=== PATIENT | male | born 1990 | race American Indian/Alaskan Native ===

== ENCOUNTER 2016-12-27 03:13 | Emergency (ER) | payer SELFPAY ==
[2016-12-27 03:16] VITALS: BMI 32.1
[2016-12-27 03:27] VITALS: TEMP 97.6
[2016-12-27] MEDS ORDERED: Albuterol-Ipratrop 3 mg / 0.5 (3 ml) UD IH STA (03:35)
--- NOTE | 2016-12-27 03:35 | ED PDOC ---
Arrival/HPI - General Chief Complaint: Chest Pain Time Seen by Provider: 12/27/16 03:34 Historian: Patient - History of Present Illness Narrative History of Present Illness (Text): 12/27/16 03:34 Kay Dean is a 26 year old male, whose past medical history includes asthma, who presents to the ED complaining of chest pain tonight. 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 Patient denies any fever, chills, abdominal pain, nausea , vomiting, back pain, neck pain, headache, dizziness, or any other complaints. Time/Duration: Other (tonight) Symptom Onset: Gradual Symptom Course: Unchanged Activities at Onset: Rest, Light Context: Work Past Medical History - Provider Review Nursing Documentation Reviewed: Yes - Infectious Disease Hx of Infectious Diseases: None - Tetanus Immunization Tetanus Immunization: Unknown - Past Medical History Past Medical History: No Previous - Cardiac Hx Cardiac Disorders: No - Pulmonary Hx Asthma: Yes - Neurological Hx Neurological Disorder: No - HEENT Hx HEENT Disorder: No - Renal Hx Renal Disorder: No - Endocrine/Metabolic Hx Endocrine Disorders: No - Hematological/Oncological Hx Blood Disorders: No - Integumentary Hx Dermatological Disorder: No - Musculoskeletal/Rheumatological Hx Musculoskeletal Disorders: No - Gastrointestinal Hx Gastrointestinal Disorders: No - Genitourinary/Gynecological Hx Genitourinary Disorders: No - Psychiatric Hx Psychophysiologic Disorder: No Hx Substance Use: No - Past Surgical History Past Surgical History: No Previous - Anesthesia Hx Anesthesia: No - Suicidal Assessment Feels Threatened In Home Enviroment: No Family/Social History - Physician Review Nursing Documentation Reviewed: Yes Family/Social History: No Known Family HX Smoking Status: Never Smoked Hx Alcohol Use: Yes Hx Substance Use: No Hx Substance Use Treatment: No Allergies/Home Meds Allergies/Adverse Reactions: Allergies No Known Allergies Allergy (Verified 05/26/16 01:07) Review of Systems - Physician Review All systems were reviewed & negative as marked: Yes - Review of Systems Constitutional: Normal. absent: Fevers Eyes: Normal ENT: Normal Respiratory: SOB Cardiovascular: Chest Pain Gastrointestinal: Normal. absent: Abdominal Pain, Nausea, Vomiting Genitourinary Male: Normal Musculoskeletal: Normal. absent: Back Pain, Neck Pain Skin: Normal. absent: Rash Neurological: Normal. absent: Headache, Dizziness Endocrine: Normal Hemo/Lymphatic: Normal Psychiatric: Normal Physical Exam Vital Signs Reviewed: Yes Vital Signs Temp Pulse Resp BP Pulse Ox 12/27/16 06:30 97.6 F 59 L 15 126/71 98 12/27/16 03:13 97.6 F 65 20 135/81 94 L Temperature: Afebrile Blood Pressure: Normal Pulse: Regular Respiratory Rate: Normal Appearance: Positive for: Well-Appearing, Non-Toxic, Comfortable Pain Distress: None Mental Status: Positive for: Alert and Oriented X 3 - Systems Exam Head: Present: Atraumatic, Normocephalic Pupils: Present: PERRL Extroacular Muscles: Present: EOMI Conjunctiva: Present: Normal Mouth: Present: Moist Mucous Membranes Neck: Present: Normal Range of Motion Respiratory/Chest: Present: Wheezes. No: Respiratory Distress, Accessory Muscle Use Cardiovascular: Present: Regular Rate and Rhythm, Normal S1, S2. No: Murmurs Abdomen: Present: Normal Bowel Sounds. No: Tenderness, Distention, Peritoneal Signs Back: Present: Normal Inspection Upper Extremity: Present: Normal Inspection. No: Cyanosis, Edema Lower Extremity: Present: Normal Inspection. No: Edema Neurological: Present: GCS=15, CN II-XII Intact, Speech Normal Skin: Present: Warm, Dry, Normal Color. No: Rashes Psychiatric: Present: Alert, Oriented x 3, Normal Insight, Normal Concentration Medical Decision Making ED Course and Treatment: 12/27/16 03:34 Impression: 26 y/o male c/o chest pain and shortness of breath tonight. Plan: -- EKG -- CXR -- Labs, cardiac enzymes -- Duoneb -- Reassess and disposition Prior Visits: Notes and results from previous visits were reviewed. On 05/16/2016, pt was seen in the ED for abdominal pain. Pt d/c home. Progress Notes: Reviewed EKG, NSR at 63 bpm. Sinus arrhythmia. Non-specific ST/T wave changes. Unchanged from previous EKG on 03/08/2013. 12/27/16 04:21 Reviewed radiology, CXR shows no active disease. 12/27/16 06:05 On re-evaluation, patient with relief of symptoms after treatment. Patient is stable for d/c. Patient was instructed to follow up with PMD in 1-2 days for further evaluation or to return to the ED if he develops any new/worsening symptoms. - Lab Interpretations Lab Results: 12/27/16 04:10 12/27/16 04:10 Lab Results 12/27/16 04:10: WBC 6.2 D, RBC 4.67, Hgb 13.1 L, Hct 40.3 L, MCV 86.3, MCH 28.1 , MCHC 32.5, RDW 12.4, Plt Count 199, MPV 9.9 12/27/16 04:10: Sodium 139, Potassium 4.0, Chloride 102, Carbon Dioxide 28, Anion Gap 13, BUN 11, Creatinine 0.8, Est GFR ( Amer) > 60, Est GFR (Non- Af Amer) > 60, Random Glucose 113 H, Calcium 8.8, Total Bilirubin 0.6, AST 24, ALT 43, Alkaline Phosphatase 92, Lactate Dehydrogenase 382, Total Creatine Kinase 290 H, CK-MB (CK-2) 2.7, CK-MB (CK-2) % Cancelled, Troponin I < 0.01, Total Protein 7.7, Albumin 4.3, Globulin 3.4, Albumin/Globulin Ratio 1.3 I have reviewed the lab results: Yes - RAD Interpretation Radiology Orders: 12/27/16 03:38 CHEST PORTABLE [RAD] Stat Engine Watchman: ED Physician - EKG Interpretation Interpreted by ED Physician: Yes Type: 12 lead EKG - Medication Orders Current Medication Orders: Discontinued Medications Albuterol/Ipratropium (Duoneb 3 Mg/0.5 Mg (3 Ml) Ud) 3 ml IH ONCE STA Stop: 12/27/16 03:36 Last Admin: 12/27/16 03:56 Dose: 3 ml - Scribe Statement The provider has reviewed the documentation as recorded by the Samra Morales Provider Attestation: All medical record entries made by the Samra were at my direction and personally dictated by me. I have reviewed the chart and agree that the record accurately reflects my personal performance of the history, physical exam, medical decision making, and the department course for this patient. I have also personally directed, reviewed, and agree with the discharge instructions and disposition. Disposition/Present on Arrival - Present on Arrival Any Indicators Present on Arrival: No History of DVT/PE: No History of Uncontrolled Diabetes: No Urinary Catheter: No History of Decub. Ulcer: No History Surgical Site Infection Following: None - Disposition Have Diagnosis and Disposition been Completed?: Yes Diagnosis: Asthma attack Disposition: HOME/ ROUTINE Disposition Time: 06:04 Patient Plan: Discharge Condition: GOOD Discharge Instructions (ExitCare): Asthma (ED) Additional Instructions: Medication as prescribed/follow up with your doctor this week Prescriptions: Albuterol HFA [Ventolin HFA 90 mcg/actuation (8 g)] 2 puff IH [id number] PRN #1 puff PRN Reason: Wheezing
[2016-12-27 04:32] LABS: ALB/GLOB RATIO 1.3 (1.1-1.8); ALKALINE PHOSPHATASE 92 U/L (38-133); ALT/SGPT 43 U/L (7-56); AST/SGOT 24 U/L (15-59); BILIRUBIN,TOTAL 0.6 mg/dL (0.2-1.3); BLOOD UREA NITROGEN 11 mg/dL (7-21); CALCIUM 8.8 mg/dL (8.4-10.5); CARBON DIOXIDE 28 mmol/L (21-33); CHLORIDE 102 mmol/L (98-107); GFR AFRICAN-AMERICAN > 60; GLUCOSE,RANDOM 113 mg/dL (70-110); SODIUM 139 mmol/L (132-148); TOTAL PROTEIN 7.7 g/dL (5.8-8.3)
[2016-12-27 04:36] LABS: HEMATOCRIT 40.3 % (42.0-52.0); WHITE BLOOD COUNT 6.2 10^3/ul (4.5-11.0)
[2016-12-27 04:37] LABS: MEAN CELL VOLUME 86.3 fL (80.0-105.0); MEAN CORPUSCULAR HEMOGLOBIN 28.1 pg (25.0-35.0); MEAN CORPUSCULAR HGB CONC 32.5 g/dl (31.0-37.0); MEAN PLATELET VOLUME 9.9 fl (7.0-11.0); RED CELL DISTRIBUTION WIDTH 12.4 % (11.5-14.5)
[2016-12-27 05:44] LABS: TROPONIN I < 0.01 ng/mL
[2016-12-27 06:31] VITALS: BP 126/71; PULSE 59; RESP 15; O2SAT 98
--- NOTE | 2016-12-27 06:38 | RAD ---
HISTORY: sob COMPARISON: 07/08/2013 FINDINGS: LUNGS: No active pulmonary disease. PLEURA: No significant pleural effusion identified, no pneumothorax apparent. CARDIOVASCULAR: Normal. OSSEOUS STRUCTURES: No significant abnormalities. VISUALIZED UPPER ABDOMEN: Normal. OTHER FINDINGS: None. IMPRESSION: No active disease.
--- NOTE | 2016-12-27 12:35 | CARD ---
APPROVED REPORT EKG Measurement Heart [id number] <Conclusion> Normal sinus rhythm with sinus arrhythmia Cannot rule out Inferior infarct, age undetermined Abnormal ECG
== END 2016-12-27 06:20 | disposition home or self-care (01) ==
LOC: ED 03:13
DX: J45.909 Unspecified asthma, uncomplicated (principal)

== ENCOUNTER 2017-01-30 13:59 | Emergency (ER) | payer SELFPAY ==
[2017-01-30 13:59] VITALS: BMI 32.1
[2017-01-30 14:44] VITALS: BP 150/80; PULSE 85; RESP 19; TEMP 98.7; O2SAT 99
--- NOTE | 2017-01-30 14:51 | ED PDOC ---
Arrival/HPI - General Chief Complaint: Eye Problem Time Seen by Provider: 01/30/17 14:47 Historian: Patient - History of Present Illness Narrative History of Present Illness (Text): 01/30/17 14:47 26yr old male presents today with redness to the left eye. Patient states on Tuesday he vomited a couple of times and woke up Tuesday morning with redness to the left eye that has been slightly worsening. He denies headache dizziness or weakness. No fevers or chills. No chest pain or shortness of breath. He denies any abdominal pain or nausea at present time. He denies trauma or injury to the eye. He denies any blurred vision. No other complaints Symptom Course: Worsening Quality: Other (no pain) Past Medical History - Provider Review Nursing Documentation Reviewed: Yes - Travel History Have you recently traveled outside [place] w/in the past 3 mons?: No - Infectious Disease Hx of Infectious Diseases: None - Tetanus Immunization Tetanus Immunization: Unknown - Past Medical History Past Medical History: No Previous - Cardiac Hx Cardiac Disorders: No - Pulmonary Hx Asthma: Yes - Neurological Hx Neurological Disorder: No - HEENT Hx HEENT Disorder: No - Renal Hx Renal Disorder: No - Endocrine/Metabolic Hx Endocrine Disorders: No - Hematological/Oncological Hx Blood Disorders: No - Integumentary Hx Dermatological Disorder: No - Musculoskeletal/Rheumatological Hx Musculoskeletal Disorders: No - Gastrointestinal Hx Gastrointestinal Disorders: No - Genitourinary/Gynecological Hx Genitourinary Disorders: No - Psychiatric Hx Psychophysiologic Disorder: No Hx Substance Use: No - Past Surgical History Past Surgical History: No Previous - Anesthesia Hx Anesthesia: No Hx Anesthesia Reactions: No Hx Malignant Hyperthermia: No - Suicidal Assessment Feels Threatened In Home Enviroment: No Family/Social History - Physician Review Nursing Documentation Reviewed: Yes Family/Social History: Unknown Family HX Smoking Status: Never Smoked Hx Alcohol Use: Yes Frequency of alcohol use: Socially Hx Substance Use: No Hx Substance Use Treatment: No Allergies/Home Meds Allergies/Adverse Reactions: Allergies grass pollen Adverse Reaction (Verified 01/30/17 14:43) RASH Home Medications: Home Meds Medication Instructions Recorded Confirmed No Known Home Med 01/30/17 01/30/17 Review of Systems - Review of Systems Constitutional: absent: Fatigue, Fevers Eyes: absent: Vision Changes, Photophobia, Eye Pain ENT: absent: Sinus Congestion Respiratory: absent: Cough Cardiovascular: absent: Chest Pain, Palpitations Gastrointestinal: Vomiting ( 3 times 3 days ago; ). absent: Abdominal Pain, Diarrhea, Nausea Musculoskeletal: absent: Arthralgias Skin: absent: Rash, Pruritis Neurological: absent: Headache, Dizziness Physical Exam Vital Signs Reviewed: Yes Vital Signs Temp Pulse Resp BP Pulse Ox 01/30/17 14:36 98.7 F 85 19 150/80 99 Temperature: Afebrile Blood Pressure: Hypertensive Pulse: Regular Respiratory Rate: Normal Appearance: Positive for: Well-Appearing, Non-Toxic, Comfortable Pain Distress: None Mental Status: Positive for: Alert and Oriented X 3 - Systems Exam Head: Present: Atraumatic Pupils: Present: PERRL Extroacular Muscles: Present: EOMI. No: Entrapment Conjunctiva: Present: Other (left eye; + subconjunctival hemorrhage noted to medial aspect of left eye; ) Ears: Present: Normal Mouth: Present: Moist Mucous Membranes Respiratory/Chest: Present: Clear to Auscultation Cardiovascular: Present: Regular Rate and Rhythm Abdomen: No: Tenderness Medical Decision Making ED Course and Treatment: 01/30/17 14:50 Patient is nontoxic well appearing in no distress Visual acuity: left eye 20/15 right eye 20/40; mPatient is supposed to wear glasses currently does not have his glasses with him. Denies any visual changes Left eye: Subconjunctival hemorrhage noted along the medial aspect. PERRLA, extraocular muscles intact, no periorbital edema or erythema or tenderness no hyphema Patient most likely with a subconjunctival hemorrhage from the vomiting that he had 3 days ago. I advised follow-up with the eye doctor within the next 2 days. Advised immediate return is symptoms worsen persist or if new concerning symptoms develop Patient verbalizes understanding of discharge instructions and need for immediate followup. all aspects of this case were discussed the attending of record. Impression: Subconjunctival hemorrhage Followup with the eye doctor within the next 2 days Return immediately if symptoms worsen persist or if new symptoms develop; blurry vision, worsening eye pain, worsening redness or any other concerning symptoms develop. Follow up with the primary care physician within the next 2 days Disposition/Present on Arrival - Present on Arrival Any Indicators Present on Arrival: No History of DVT/PE: No History of Uncontrolled Diabetes: No Urinary Catheter: No History of Decub. Ulcer: No History Surgical Site Infection Following: None - Disposition Have Diagnosis and Disposition been Completed?: Yes Diagnosis: Subconjunctival hemorrhage Disposition: HOME/ ROUTINE Disposition Time: 14:51 Patient Plan: Discharge Condition: GOOD Discharge Instructions (ExitCare): Subconjunctival Hemorrhage (ED) Additional Instructions: Followup with the eye doctor within the next 2 days Return immediately if symptoms worsen persist or if new symptoms develop; blurry vision, worsening eye pain, worsening redness or any other concerning symptoms develop. Follow up with the primary care physician within the next 2 days Referrals: Annalee Tovar, [Primary Care Provider] - Follow up with primary Sky Mccarthy MD [Staff Provider] - Follow up with primary Gayathri Alcaraz MD [Staff Provider] - Follow up with primary [facility] [place]] - Follow up with primary
== END 2017-01-30 15:01 | disposition home or self-care (01) ==
LOC: ED 13:59
DX: H11.32 Conjunctival hemorrhage, left eye (principal)

== ENCOUNTER 2017-04-08 23:30 | Emergency (ER) | payer OTHER ==
[2017-04-08 23:31] VITALS: BMI 32.1
[2017-04-08 23:38] VITALS: TEMP 97.9
[2017-04-08] MEDS ORDERED: Sodium Chloride 0.9% 1,000 ML IV SCH (23:45)
[2017-04-08] MEDS ORDERED: DiphenhydrAMINE 50 mg/ml Inj IVP STA (23:51)
[2017-04-08] MEDS ORDERED: Albuterol-Ipratrop 3 mg / 0.5 (3 ml) UD IH STA (23:52)
--- NOTE | 2017-04-09 01:36 | ED PDOC ---
Arrival/HPI <Ernie Lo - Last Filed: 04/09/17 01:59> - General Historian: Patient EM Caveat: Acuity of Condition - History of Present Illness Time/Duration: Prior to Arrival Symptom Onset: Gradual Activities at Onset: Rest Context: Home <OSCAR DAVISON - Last Filed: 04/09/17 02:10> - General Chief Complaint: Allergic Reaction Time Seen by Provider: 04/08/17 23:36 - History of Present Illness Narrative History of Present Illness (Text): Patient is a 26 year old male with past medical history of asthma who presented to [facility] Emergency department 04/08/17 with complaints of swollen face arms, and pruritus. Patient states that prior to event he was at his brother's house and at times playing with his brother's dog. Patient states he doesn't usually interact with dog while at brother's house but today for the first time stayed inside the house during the day and was in constant contact with the dog. He says around 9 p.m. he started feeling dyspneic and decided to go home to use his inhaler. He went home realize his inhaler was done and decided to use his sister's asthma machine. Around 10 when he was on his way to work he noticed his arms were itching and noted swelling in his face when he looked in the mirror, prompting patient to come to the Emergency department. Patient denies n/ v/d, dizziness, chest pain, headache. 04/09/17 01:42 (ABY DAVIS) Past Medical History - Provider Review Nursing Documentation Reviewed: Yes - Infectious Disease Hx of Infectious Diseases: None - Tetanus Immunization Tetanus Immunization: Unknown - Past Medical History Past Medical History: No Previous - Cardiac Hx Cardiac Disorders: No - Pulmonary Hx Asthma: Yes - Neurological Hx Neurological Disorder: No - HEENT Hx HEENT Disorder: No - Renal Hx Renal Disorder: No - Endocrine/Metabolic Hx Endocrine Disorders: No - Hematological/Oncological Hx Blood Disorders: No - Integumentary Hx Dermatological Disorder: No - Musculoskeletal/Rheumatological Hx Musculoskeletal Disorders: No - Gastrointestinal Hx Gastrointestinal Disorders: No - Genitourinary/Gynecological Hx Genitourinary Disorders: No - Psychiatric Hx Psychophysiologic Disorder: No Hx Substance Use: No - Past Surgical History Past Surgical History: No Previous - Anesthesia Hx Anesthesia: No Hx Anesthesia Reactions: No Hx Malignant Hyperthermia: No - Suicidal Assessment Feels Threatened In Home Enviroment: No <ABY DAVIS Last Filed: 04/09/17 02:10> Family/Social History - Physician Review Nursing Documentation Reviewed: Yes Family/Social History: Other (Brother and sister have asthma) Smoking Status: Never Smoked Hx Alcohol Use: Yes Hx Substance Use: No Hx Substance Use Treatment: No <DAVISABY - Last Filed: 04/09/17 02:10> Allergies/Home Meds <TeresitaErnie Mckeon Last Filed: 04/09/17 01:59> <RYANABY - Last Filed: 04/09/17 02:10> Allergies/Adverse Reactions: Allergies grass pollen Adverse Reaction (Verified 01/30/17 14:43) RASH Review of Systems - Physician Review All systems were reviewed & negative as marked: Yes <TeresitaErnie Mckeon Last Filed: 04/09/17 01:59> - Physician Review All systems were reviewed & negative as marked: Yes - Review of Systems Eyes: Normal ENT: absent: Hearing Changes Gastrointestinal: absent: Abdominal Pain, Vomiting Genitourinary Male: absent: Dysuria Musculoskeletal: absent: Arthralgias Skin: Pruritis. absent: Rash Neurological: absent: Headache, Dizziness <ABY DAVIS Last Filed: 04/09/17 02:10> Physical Exam Vital Signs Reviewed: Yes Temperature: Afebrile Blood Pressure: Normal Pulse: Regular Respiratory Rate: Normal Appearance: Positive for: Uncomfortable Pain Distress: None Mental Status: Positive for: Alert and Oriented X 3 - Systems Exam Head: Present: Atraumatic, Normocephalic Extroacular Muscles: Present: EOMI Conjunctiva: Present: Normal Mouth: Present: Moist Mucous Membranes Respiratory/Chest: Present: Clear to Auscultation, Good Air Exchange Cardiovascular: Present: Regular Rate and Rhythm, Normal S1, S2 Abdomen: Present: Tenderness, Normal Bowel Sounds Neurological: Present: CN II-XII Intact Skin: Present: Hot. No: Rashes Psychiatric: Present: Alert, Oriented x 3 <RYANABY Last Filed: 04/09/17 02:10> Vital Signs Temp Pulse Resp BP Pulse Ox 04/08/17 23:33 97.9 F 89 18 128/74 97 Medical Decision Making <TeresitaErnie Mckeon Last Filed: 04/09/17 01:59> <ABY DAVIS - Last Filed: 04/09/17 02:10> ED Course and Treatment: 04/09/17 02:05 In agreement with resident note, which includes further HPI details. Patient was seen and evaluated with resident, came up with plan and treatment together. 26 year old male presents complaining of swollen face, arms, and pruritus. (Ernie Lo) Assessment Patient is a 26 year old male with a history of asthma presenting to the Emergency department with an allergic reaction due to contact with dogs. Plan - Benadryl, Methylprednisolone, Duoneb, Pepcid were administered to patient - Patient's symptoms resolved shortly with medications - Advise patient to establish care with PMD - Will prescribe albuterol inhaler to patient 04/09/17 01:46 (ABY DAVIS) - Medication Orders Current Medication Orders: Sodium Chloride (Sodium Chloride 0.9%) 1,000 mls @ 100 mls/hr IV .Q10H EPHRAIM Last Admin: 04/09/17 00:24 Dose: 100 mls/hr Discontinued Medications Albuterol/Ipratropium (Duoneb 3 Mg/0.5 Mg (3 Ml) Ud) 3 ml IH STAT STA Stop: 04/08/17 23:53 Last Admin: 04/09/17 00:24 Dose: 3 ml Diphenhydramine HCl (Benadryl) 50 mg IVP STAT STA Stop: 04/08/17 23:52 Last Admin: 04/09/17 00:24 Dose: 50 mg Famotidine (Pepcid) 20 mg IVP STAT STA Stop: 04/08/17 23:54 Last Admin: 04/09/17 00:24 Dose: 20 mg Methylprednisolone (Solu-Medrol) 125 mg IVP STAT STA Stop: 04/08/17 23:53 Last Admin: 04/09/17 00:24 Dose: 125 mg Ondansetron HCl (Zofran Inj) Confirm Administered Dose 4 mg .ROUTE .STK-MED ONE Stop: 04/09/17 00:18 Last Admin: 04/09/17 00:25 Dose: Ondansetron HCl (Zofran Inj) 4 mg IVP STAT STA Stop: 04/09/17 00:18 Last Admin: 04/09/17 00:25 Dose: 4 mg - Scribe Statement The provider has reviewed the documentation as recorded by the Scribe <Ernie Lo - Last Filed: 04/09/17 01:59> <ABY DAVIS - Last Filed: 04/09/17 02:10> - Scribe Statement Autumn Chadwick All medical record entries made by the Scribe were at my direction and personally dictated by me. I have reviewed the chart and agree that the record accurately reflects my personal performance of the history, physical exam, medical decision making, and the department course for this patient. I have also personally directed, reviewed, and agree with the discharge instructions and disposition. (Ernie Lo) Disposition/Present on Arrival <Ernie Lo - Last Filed: 04/09/17 01:59> - Present on Arrival Any Indicators Present on Arrival: No History of DVT/PE: No History of Uncontrolled Diabetes: No Urinary Catheter: No History of Decub. Ulcer: No History Surgical Site Infection Following: None - Disposition Have Diagnosis and Disposition been Completed?: Yes Disposition Time: 01:51 Patient Plan: Discharge <ABY DAVIS - Last Filed: 04/09/17 02:10> - Disposition Diagnosis: Allergic reaction Disposition: HOME/ ROUTINE Patient Problems: Current Active Problems Problem Status Onset Allergic reaction Acute Condition: GOOD Additional Instructions: Establish care with a primary care physician to further evaluate and follow your asthma; notify physician regarding hospitalization. Fill prescription for albuterol inhaler and take as prescribed. If symptoms return or if you have any other concerns return to the Emergency room. Prescriptions: Albuterol HFA [Ventolin HFA 90 mcg/actuation (8 g)] 2 puff IH [id number] #30 puff Forms: [employer] ([place])
[2017-04-09 02:46] VITALS: BP 124/76; PULSE 76; RESP 16; O2SAT 99
== END 2017-04-09 02:15 | disposition home or self-care (01) ==
LOC: ED 23:30
DX: T78.40XA Allergy, unspecified, initial encounter (principal); X58.XXXA Exposure to other specified factors, initial encounter
CPT/HCPCS: 96374; 96375; 99284; J1200; J2405; J2930; J7040

== ENCOUNTER 2017-07-30 20:42 | Emergency (ER) | payer SELFPAY ==
[2017-07-30 20:46] VITALS: BMI 28.8
[2017-07-30 20:49] VITALS: RESP 18; TEMP 98.8
--- NOTE | 2017-07-30 21:20 | ED PDOC ---
Arrival/HPI - General Chief Complaint: Abdominal Pain Time Seen by Provider: 07/30/17 21:12 Historian: Patient - History of Present Illness Narrative History of Present Illness (Text): 07/30/17 21:15 A 27 year old male presents to the emergency department complaining of constant right upper abdominal pain for 2 days. Patient reports his pain was sudden in onset. He denies any relieving or exacerbating factors. Patient notes mild nausea but denies any trauma, injury, fever, chills, vomiting, diarrhea, urinary symptoms, chest pain, shortness of breath, cough or any other complaints. Patient denies taking any medications. No history of alcohol abuse. Time/Duration: Other (2 days) Symptom Onset: Sudden Symptom Course: Unchanged (constant) Quality: Other Context: Home Past Medical History - Provider Review Nursing Documentation Reviewed: Yes - Infectious Disease Hx of Infectious Diseases: None - Tetanus Immunization Tetanus Immunization: Unknown - Past Medical History Past Medical History: No Previous - Cardiac Hx Cardiac Disorders: No - Pulmonary Hx Asthma: Yes - Neurological Hx Neurological Disorder: No - HEENT Hx HEENT Disorder: No - Renal Hx Renal Disorder: No - Endocrine/Metabolic Hx Endocrine Disorders: No - Hematological/Oncological Hx Blood Disorders: No - Integumentary Hx Dermatological Disorder: No - Musculoskeletal/Rheumatological Hx Musculoskeletal Disorders: No - Gastrointestinal Hx Gastrointestinal Disorders: No - Genitourinary/Gynecological Hx Genitourinary Disorders: No - Psychiatric Hx Psychophysiologic Disorder: No Hx Substance Use: No - Past Surgical History Past Surgical History: No Previous - Anesthesia Hx Anesthesia: No Hx Anesthesia Reactions: No Hx Malignant Hyperthermia: No - Suicidal Assessment Feels Threatened In Home Enviroment: No Family/Social History - Physician Review Nursing Documentation Reviewed: Yes Family/Social History: No Known Family HX Smoking Status: Never Smoked Hx Alcohol Use: Yes Frequency of alcohol use: Socially Hx Substance Use: No Hx Substance Use Treatment: No Allergies/Home Meds Allergies/Adverse Reactions: Allergies grass pollen Adverse Reaction (Verified 01/30/17 14:43) RASH Review of Systems - Physician Review All systems were reviewed & negative as marked: Yes - Review of Systems Constitutional: absent: Fevers, Night Sweats Respiratory: absent: SOB, Cough Cardiovascular: absent: Chest Pain Gastrointestinal: Abdominal Pain (Right upper abdominal), Nausea. absent: Diarrhea, Vomiting Genitourinary Male: absent: Dysuria, Frequency, Hematuria, Urinary Output Changes Physical Exam Vital Signs Reviewed: Yes Vital Signs Temp Pulse Resp BP Pulse Ox 07/31/17 00:27 71 18 134/74 96 07/30/17 22:59 80 18 130/62 98 07/30/17 22:56 62 18 130/62 96 07/30/17 20:48 98.8 F 66 18 120/75 95 Temperature: Afebrile Blood Pressure: Normal Pulse: Regular Respiratory Rate: Normal Appearance: Positive for: Well-Appearing, Non-Toxic, Comfortable Pain Distress: None Mental Status: Positive for: Alert and Oriented X 3 - Systems Exam Head: Present: Atraumatic, Normocephalic Pupils: Present: PERRL Extroacular Muscles: Present: EOMI Conjunctiva: Present: Normal Mouth: Present: Moist Mucous Membranes Neck: Present: Normal Range of Motion Respiratory/Chest: Present: Clear to Auscultation, Good Air Exchange. No: Respiratory Distress, Accessory Muscle Use Cardiovascular: Present: Regular Rate and Rhythm, Normal S1, S2. No: Murmurs Abdomen: Present: Tenderness (RUQ tenderness to palpation), Normal Bowel Sounds. No: Distention, Peritoneal Signs, Rebound, Guarding Back: Present: Normal Inspection Upper Extremity: Present: Normal Inspection. No: Cyanosis, Edema Lower Extremity: Present: Normal Inspection. No: Edema Neurological: Present: GCS=15, CN II-XII Intact, Speech Normal Skin: Present: Warm, Dry, Normal Color. No: Rashes Psychiatric: Present: Alert, Oriented x 3, Normal Insight, Normal Concentration Medical Decision Making ED Course and Treatment: 07/30/17 21:15 Impression: A 27 year old male with right upper abdominal pain and nausea. Plan: -- Abdominal CT -- Labs -- IV fluids -- Reassess and disposition Progress Notes: 07/31/17 01:31 Re-evaluation. Patient feels better. Discussed results and plan with patient who expresses understanding. All questions answered and there is agreement with the plan to discharge home with instructions. Patient stable for discharge. Return if symptoms persist or worsen. Re-evaluation Time: 01:28 Reassessment Condition: Re-examined, Improved - Lab Interpretations Lab Results: 07/30/17 21:45 07/30/17 21:45 Lab Results 07/30/17 21:45: Sodium 140, Potassium 3.8, Chloride 103, Carbon Dioxide 25, Anion Gap 16, BUN 11, Creatinine 0.9, Est GFR ( Amer) > 60, Est GFR (Non- Af Amer) > 60, Random Glucose 104, Calcium 8.7, Total Bilirubin 0.8, AST 42, ALT 49, Alkaline Phosphatase 92, Total Protein 7.5, Albumin 4.2, Globulin 3.3, Albumin/Globulin Ratio 1.3, Lipase 49 07/30/17 21:45: Urine Color Yellow, Urine Appearance Cloudy, Urine pH 6.0, Ur Specific [place] 1.025, Urine Protein 30 H, Urine Glucose (UA) Negative, Urine Ketones Trace H, Urine Blood Negative, Urine Nitrate Negative, Urine Bilirubin Negative, Urine Urobilinogen 4.0 H, Ur Leukocyte Esterase Negative, Urine RBC Negative, Urine WBC 1 - 3, Ur Epithelial Cells 1 - 3, Urine Bacteria Few 07/30/17 21:45: WBC 3.7 L D, RBC 4.48, Hgb 12.6 L, Hct 39.2 L, MCV 87.5, MCH 28.1, MCHC 32.1, RDW 12.5, Plt Count 182, MPV 10.2, Gran % 40.0 L, Lymph % (Auto ) 35.5 H, [place] % (Auto) 21.0 H, Eos % (Auto) 3.2, Baso % (Auto) 0.3, Gran # 1.49 , Lymph # 1.3, [place] # 0.8 H, Eos # 0.1, Baso # 0.01, Neutrophils % (Manual) 40 L , Lymphocytes % (Manual) 39 H, Monocytes % (Manual) 16 H, Eosinophils % (Manual ) 3, Basophils % (Manual) 1 I have reviewed the lab results: Yes Interpretation: Abnormal lab values - RAD Interpretation Narrative RAD Interpretations (Text): 07/31/17 01:28 [facility] Radiology [address] [address] Tel. no. Patient Name: TIFFANI BERRY Pt. Address: [address] [place] [address] Rec #: [id number] [place] [address]: Joesph TURCIOS, Chris Newman Pt Order Location: ED : 1990 Male Age: 27 Order #: [id number] Reason for exam: RUQ pain CT Scan ABD PELVIS IV CONTRAST ONLY Exam Date: 07/30/17 This imaging exam was performed at [facility] EXAM: CT Abdomen and Pelvis With Intravenous Contrast CLINICAL HISTORY: 27 years old, male; Pain; Abdominal pain; Generalized; Additional info: Ruq pain TECHNIQUE: Axial computed tomography images of the abdomen and pelvis with intravenous contrast. All CT scans at this facility use one or more dose reduction techniques, viz.: automated exposure control; ma/kV adjustment per patient size (including targeted exams where dose is matched to indication; i.e. head); or iterative reconstruction technique. Coronal and sagittal reformatted images were created and reviewed. CONTRAST: 100 mL of omni 350 administered intravenously. COMPARISON: US - ABDOMEN COMPLETE 2017-07-30 23:43 FINDINGS: Lower thorax: No acute findings. ABDOMEN: Liver: Few < 0.5 cm lesions. Gallbladder and bile ducts: No calcified stones. No ductal dilation. Pancreas: No ductal dilation. No mass. Spleen: No splenomegaly. Adrenals: No mass. Kidneys and ureters: No mass. No hydronephrosis. Stomach and bowel: Apparent mild mural/fold thickening vs underdistention of few jejunal loops. No associated inflammatory stranding. No obstruction. Appendix: Normal caliber. No inflammation. PELVIS: Bladder: Unremarkable. Reproductive: Unremarkable as visualized. ABDOMEN and PELVIS: Intraperitoneal space: Trace free fluid within pelvis. No free air. Bones/joints: No acute fracture. Soft tissues: Tiny RIGHT inguinal hernia containing fat. Vasculature: Unremarkable. No aneurysm. Lymph nodes: Several subcentimeter short axis mesenteric lymph nodes, nonspecific. IMPRESSION: 1. Possible mild enteritis and/or mesenteric adenitis. Clinical correlation is needed. 2. Liver lesions. For patients with low to average risk of malignancy, no further follow-up is necessary. For patients with high risk of malignancy (known malignancy that can metastasize or other risk factors), recommend follow-up abdominal CT or MR in 6 months. 3. Incidental/non-acute findings are described above. Dictated By: Collin Delgado MD Dictated Date/Time: 07/31/17116 Signed By: Collin Delgado MD Date Signed: 116 Transcribed By: BREN Transcribe Date/Time : 07/31/17116 [id number] 07/31/17 01:33 Chest x-rays: NAD Radiology Orders: 07/30/17 21:45 CHEST PORTABLE [RAD] Stat 07/30/17 23:36 ABDOMEN COMPLETE [US] Stat 07/30/17 23:55 ABD & PELVIS IV CONTRAST ONLY [CT] Stat - Medication Orders Current Medication Orders: Discontinued Medications Famotidine (Pepcid) 20 mg IVP STAT STA Stop: 07/30/17 21:44 Last Admin: 07/30/17 21:57 Dose: 20 mg IVP Administration Document 07/30/17 21:57 CNR (Rec: 07/30/17 21:57 CNR [id number]) Charges for Administration # of IVP Administrations 1 Sodium Chloride (Sodium Chloride 0.9%) 1,000 mls @ 1,000 mls/hr IV .Q1H STA Stop: 07/30/17 22:42 Last Admin: 07/30/17 21:57 Dose: 1,000 mls/hr eMAR Start Stop Document 07/30/17 21:57 CNR (Rec: 07/30/17 21:57 CNR [id number]) Intravenous Solution Start Date 07/30/17 Start Time 21:57 Morphine Sulfate (Morphine) 2 mg IVP STAT STA Stop: 07/30/17 21:46 Last Admin: 07/30/17 21:57 Dose: 2 mg MAR Pain Assessment Document 07/30/17 21:57 CNR (Rec: 07/30/17 21:57 CNR [id number]) Pain Reassessment Is this a pain reassessment? Yes Location Left, Right or Bilateral Right Upper or Lower Upper Pain Location Body Site Abdomen Description Description Constant IVP Administration Document 07/30/17 21:57 CNR (Rec: 07/30/17 21:57 CNR [id number]) Charges for Administration # of IVP Administrations 1 - Scribe Statement The provider has reviewed the documentation as recorded by the Scribe Sharron Obrien Provider Scribe Attestation: All medical record entries made by the Scribe were at my direction and personally dictated by me. I have reviewed the chart and agree that the record accurately reflects my personal performance of the history, physical exam, medical decision making, and the department course for this patient. I have also personally directed, reviewed, and agree with the discharge instructions and disposition. Disposition/Present on Arrival - Present on Arrival Any Indicators Present on Arrival: No History of DVT/PE: No History of Uncontrolled Diabetes: No Urinary Catheter: No History of Decub. Ulcer: No History Surgical Site Infection Following: None - Disposition Have Diagnosis and Disposition been Completed?: Yes Diagnosis: Enteritis, Nonspecific abdominal pain Disposition: HOME/ ROUTINE Disposition Time: 01:35 Patient Plan: Discharge Patient Problems: Current Active Problems Problem Status Onset Enteritis Acute Nonspecific abdominal pain Acute Condition: GOOD Discharge Instructions (ExitCare): Abdominal Pain (ED), Enteritis (ED) Additional Instructions: Call private doctor for follow up visit in 1-2 days. Take medication as instructed. Return to emergency if symptoms worsen. Cipro has a risk of tendonitis and tendon rupture, so be careful not to do strenuous activities. Prescriptions: Ciprofloxacin HCl [Cipro] 500 mg PO BID #13 tablet Metronidazole [Flagyl] 500 mg PO TID #20 tablet Ondansetron ODT [Zofran ODT] 4 mg PO Q4H PRN #15 odt PRN Reason: Nausea/Vomiting Referrals: [facility] Joshua Tovar, [Primary Care Provider] - Follow up with primary [facility] [Outside] - Follow up with primary [facility] [Outside] - Follow up with primary Forms: [employer] [facility] (Spanish), WORK NOTE
[2017-07-30] MEDS ORDERED: Sodium Chloride 0.9% 1,000 ML IV STA (21:43)
[2017-07-30] MEDS ORDERED: Morphine 2 mg/ml ISec IVP STA (21:45)
[2017-07-30 22:01] LABS: URINE BILIRUBIN NEGATIVE (NEGATIVE); URINE BLOOD NEGATIVE (NEGATIVE); URINE GLUCOSE (UA) NEGATIVE (NEGATIVE); URINE KETONE TRACE mg/dL (NEGATIVE)
[2017-07-30 22:02] LABS: BASO # 0.01 K/mm3 (0.0-2.0); BASO % 0.3 % (0.0-3.0); EOS # 0.1 (0.0-0.7); EOS % 3.2 % (1.5-5.0); GRAN # 1.49 (1.4-6.5); HEMATOCRIT 39.2 % (42.0-52.0); LYMPH # 1.3 (1.2-3.4); LYMPH % 35.5 % (22.0-35.0); MEAN CELL VOLUME 87.5 fl (80.0-105.0); MEAN CORPUSCULAR HEMOGLOBIN 28.1 pg (25.0-35.0); MEAN CORPUSCULAR HGB CONC 32.1 g/dl (31.0-37.0); MEAN PLATELET VOLUME 10.2 fl (7.0-11.0); MONO # 0.8 (0.1-0.6); PLATELET COUNT 182 10^3/uL (120.0-450.0); RED CELL DISTRIBUTION WIDTH 12.5 % (11.5-14.5); URINE LEUKOCYTE ESTERASE NEGATIVE Leu/uL (NEGATIVE); URINE PROTEIN 30 mg/dL (<30 mg/dL); WHITE BLOOD COUNT 3.7 10^3/ul (4.5-11.0)
[2017-07-30 22:03] LABS: URINE APPEARANCE CLOUDY (CLEAR); URINE COLOR YELLOW (YELLOW)
[2017-07-30 22:16] LABS: ALB/GLOB RATIO 1.3 (1.1-1.8); ALKALINE PHOSPHATASE 92 U/L (38-126); ALT/SGPT 49 U/L (7-56); AST/SGOT 42 U/L (17-59); BILIRUBIN,TOTAL 0.8 mg/dL (0.2-1.3); BLOOD UREA NITROGEN 11 mg/dL (7-21); CALCIUM 8.7 mg/dL (8.4-10.5); CARBON DIOXIDE 25 mmol/L (21-33); CHLORIDE 103 mmol/L (98-107); GFR AFRICAN-AMERICAN > 60; GLUCOSE,RANDOM 104 mg/dL (70-110); LIPASE 49 U/L (23-300); POTASSIUM 3.8 mmol/L (3.6-5.0); SODIUM 140 mmol/L (132-148); TOTAL PROTEIN 7.5 g/dL (5.8-8.3)
[2017-07-30 22:24] LABS: URINE BACTERIA FEW (NEG); URINE RBC NEGATIVE /hpf (0-2)
[2017-07-30 23:05] LABS: EOSINOPHIL 3 % (0.0-3.0); NEUTROPHIL 40 % (50.0-70.0)
[2017-07-30 23:06] LABS: BASOPHIL 1 % (0.0-1.0)
[2017-07-31] MEDS ORDERED: Iohexol 350 MG/100 ML VIAL ONE (00:02)
--- NOTE | 2017-07-31 00:09 | US ---
EXAM: US Abdomen Complete CLINICAL HISTORY: 27 years old, male; Pain; Abdominal pain; Generalized; Additional info: Ruq pain TECHNIQUE: Real-time ultrasound of the abdomen (complete) with image documentation. COMPARISON: US - ABDOMEN COMPLETE 2016-05-26 04:08 FINDINGS: Liver: Fatty infiltration. No mass. No intrahepatic ductal dilatation. Gallbladder: No gallstones. No wall thickening. No pericholecystic fluid. No sonographic Solano's sign. Common bile duct: No dilatation. No stones. Pancreas: Unremarkable as visualized. Kidneys: Normal echogenicity. No hydronephrosis. Spleen: No splenomegaly. Aorta: Unremarkable. No aneurysm. Inferior vena cava: Unremarkable. Free fluid: No significant free fluid. IMPRESSION: 1.No acute findings. 2.Non-acute findings are described above.
[2017-07-31 00:28] VITALS: BP 134/74; PULSE 71; O2SAT 96
--- NOTE | 2017-07-31 01:18 | CT ---
EXAM: CT Abdomen and Pelvis With Intravenous Contrast CLINICAL HISTORY: 27 years old, male; Pain; Abdominal pain; Generalized; Additional info: Ruq pain TECHNIQUE: Axial computed tomography images of the abdomen and pelvis with intravenous contrast. All CT scans at this facility use one or more dose reduction techniques, viz.: automated exposure control; ma/kV adjustment per patient size (including targeted exams where dose is matched to indication; i.e. head); or iterative reconstruction technique. Coronal and sagittal reformatted images were created and reviewed. CONTRAST: 100 mL of omni 350 administered intravenously. COMPARISON: US - ABDOMEN COMPLETE 2017-07-30 23:43 FINDINGS: Lower thorax: No acute findings. ABDOMEN: Liver: Few < 0.5 cm lesions. Gallbladder and bile ducts: No calcified stones. No ductal dilation. Pancreas: No ductal dilation. No mass. Spleen: No splenomegaly. Adrenals: No mass. Kidneys and ureters: No mass. No hydronephrosis. Stomach and bowel: Apparent mild mural/fold thickening vs underdistention of few jejunal loops. No associated inflammatory stranding. No obstruction. Appendix: Normal caliber. No inflammation. PELVIS: Bladder: Unremarkable. Reproductive: Unremarkable as visualized. ABDOMEN and PELVIS: Intraperitoneal space: Trace free fluid within pelvis. No free air. Bones/joints: No acute fracture. Soft tissues: Tiny RIGHT inguinal hernia containing fat. Vasculature: Unremarkable. No aneurysm. Lymph nodes: Several subcentimeter short axis mesenteric lymph nodes, nonspecific. IMPRESSION: 1. Possible mild enteritis and/or mesenteric adenitis. Clinical correlation is needed. 2. Liver lesions. For patients with low to average risk of malignancy, no further follow-up is necessary. For patients with high risk of malignancy (known malignancy that can metastasize or other risk factors), recommend follow-up abdominal CT or MR in 6 months. 3. Incidental/non-acute findings are described above.
--- NOTE | 2017-07-31 09:41 | RAD ---
HISTORY: RUQ pain COMPARISON: 12/27/2016 FINDINGS: LUNGS: No active pulmonary disease. PLEURA: No significant pleural effusion identified, no pneumothorax apparent. CARDIOVASCULAR: Normal. OSSEOUS STRUCTURES: No significant abnormalities. VISUALIZED UPPER ABDOMEN: Normal. OTHER FINDINGS: None. IMPRESSION: No active disease. No significant interval change compared to the prior examination(s). Concordant results with the preliminary interpretation rendered by the emergency department physician procedure.
== END 2017-07-31 01:51 | disposition home or self-care (01) ==
LOC: ED 20:42
DX: K52.9 Noninfective gastroenteritis and colitis, unspecified (principal)
CPT/HCPCS: 71010; 74177; 76700; 80053; 81001; 83690; 85025; 96374; 96375; 99284; J2270; J7040; Q9967

== ENCOUNTER 2018-02-27 14:11 | Emergency (ER) | payer MEDICAID, OTHER ==
[2018-02-27 14:12] VITALS: BMI 28.8
[2018-02-27 15:08] VITALS: RESP 18; TEMP 98.9
--- NOTE | 2018-02-27 15:18 | ED PDOC ---
Arrival/HPI - General Chief Complaint: Lower Extremity Problem/Injury Time Seen by Provider: 02/27/18 15:13 Historian: Patient - History of Present Illness Narrative History of Present Illness (Text): 02/27/18 15:14 This 27 yo male presents to this ED c/o left 4th toe pain since last night. Patient thinks "something bit me". Patient denies other somatic complains. Time/Duration: Other (see hpi) Context: Home Past Medical History - Provider Review Nursing Documentation Reviewed: Yes - Infectious Disease Hx of Infectious Diseases: None - Tetanus Immunization Tetanus Immunization: Unknown - Past Medical History Past Medical History: No Previous - Cardiac Hx Cardiac Disorders: No - Pulmonary Hx Asthma: Yes - Neurological Hx Neurological Disorder: No - HEENT Hx HEENT Disorder: No - Renal Hx Renal Disorder: No - Endocrine/Metabolic Hx Endocrine Disorders: No - Hematological/Oncological Hx Blood Disorders: No - Integumentary Hx Dermatological Disorder: No - Musculoskeletal/Rheumatological Hx Musculoskeletal Disorders: No - Gastrointestinal Hx Gastrointestinal Disorders: No - Genitourinary/Gynecological Hx Genitourinary Disorders: No - Psychiatric Hx Psychophysiologic Disorder: No Hx Substance Use: No - Past Surgical History Past Surgical History: No Previous - Anesthesia Hx Anesthesia: No Hx Anesthesia Reactions: No Hx Malignant Hyperthermia: No - Suicidal Assessment Feels Threatened In Home Enviroment: No Family/Social History - Physician Review Nursing Documentation Reviewed: Yes Family/Social History: Other (noncontributory) Smoking Status: Never Smoked Hx Alcohol Use: Yes Hx Substance Use: No Hx Substance Use Treatment: No Allergies/Home Meds Allergies/Adverse Reactions: Allergies grass pollen Adverse Reaction (Verified 02/27/18 15:08) RASH Review of Systems - Review of Systems Constitutional: Normal. absent: Fatigue, Weight Change, Fevers, Night Sweats Eyes: Normal ENT: Normal Respiratory: Normal Cardiovascular: Normal Gastrointestinal: Normal Genitourinary Male: Normal Musculoskeletal: Other (left toe pain) Skin: Normal Neurological: Normal Endocrine: Normal Hemo/Lymphatic: Normal Psychiatric: Normal Physical Exam Vital Signs Temp Pulse Resp BP Pulse Ox 02/27/18 15:05 98.9 F 66 18 119/69 98 Temperature: Afebrile Blood Pressure: Normal Pulse: Regular Respiratory Rate: Normal Appearance: Positive for: Well-Appearing, Non-Toxic, Comfortable Pain Distress: None Mental Status: Positive for: Alert and Oriented X 3 - Systems Exam Head: Present: Atraumatic, Normocephalic Upper Extremity: Present: Normal Inspection, Normal ROM Lower Extremity: Present: NORMAL PULSES, Normal ROM, Tenderness ((+) left 4th toe paronychia, rest to toe is normal), Neurovascularly Intact, Capillary Refill < 2 s. No: Edema, CALF TENDERNESS, Suma's Sign Neurological: Present: GCS=15, CN II-XII Intact, Speech Normal, Motor Func Grossly Intact, Normal Sensory Function, Normal Cerebellar Funct, Gait Normal Skin: Present: Warm, Dry, Normal Color. No: Rashes Psychiatric: Present: Alert, Oriented x 3, Normal Insight, Normal Concentration Medical Decision Making ED Course and Treatment: 02/27/18 15:20 Re-evaluation. Patient feels better. Discussed results and plan with patient who expresses understanding. All questions answered and there is agreement with the plan to discharge home with instructions. Patient stable for discharge. Return if symptoms persist or worsen. Patient refused I&D. He prefers ABX, and Epson salt sitz bath. I told patient to see his pmd in 1-2 days. Re-evaluation Time: 15:20 Reassessment Condition: Re-examined, Improved Disposition/Present on Arrival - Present on Arrival Any Indicators Present on Arrival: No History of DVT/PE: No History of Uncontrolled Diabetes: No Urinary Catheter: No History of Decub. Ulcer: No History Surgical Site Infection Following: None - Disposition Have Diagnosis and Disposition been Completed?: Yes Diagnosis: Paronychia of fourth toe of left foot Disposition Time: 15:21 Patient Problems: Current Active Problems Problem Status Onset Paronychia of fourth toe of left foot Acute Condition: GOOD Discharge Instructions (ExitCare): Paronychia (DC) Additional Instructions: Call private doctor for follow up visit in 1-2 days. Take medication as instructed. Return to emergency if symptoms worsen. Do sitz bath with warmth epson salt water. Prescriptions: Ibuprofen [Motrin] 400 mg PO Q8H PRN #20 tab PRN Reason: Pain, Severe (8-10) Sulfamethoxazole/Trimethoprim [Bactrim DS 800 mg-160 mg] 1 tab PO BID #20 tab Referrals: Samantha Avila MD [Staff Provider] - Follow up with primary [facility] [Outside] - Follow up with primary
[2018-02-27 15:38] VITALS: BP 130/78; PULSE 76; O2SAT 99
== END 2018-02-27 15:38 | disposition home or self-care (01) ==
LOC: ED 14:11
DX: L03.032 Cellulitis of left toe (principal)